=== PATIENT | female | born 1990 | race African-American/Black ===

== ENCOUNTER 2021-11-05 17:28 | Emergency (ER) | payer BC ==
[~2021-11-05] VITALS: Ht 180.3 cm; Wt 92.6 kg
[2021-11-05] MEDS ORDERED: AUGMENTIN 500-1 EACH PO (18:49)
== END 2021-11-05 18:54 | disposition home or self-care (01) ==
LOC: FSED 18:15
DX: J02.0 Streptococcal pharyngitis (principal); J45.909 Unspecified asthma, uncomplicated
CPT/HCPCS: 83518; 87400; 99283